=== PATIENT | female | born 1970 | race African-American/Black ===

== ENCOUNTER 2018-09-07 14:27 | Emergency (ER) | payer MEDICAID ==
[~2018-09-07] VITALS: Ht 162.6 cm; Wt 118.0 kg
--- NOTE | 2018-09-07 14:41 | NUR ---
Spoke to MARIA L Kenny regarding pt complaints. Per MD, pt does not need EKG at this time as she is not experiencing any chest pain or SOB.
[2018-09-07 17:55] VITALS: BP 195/107
== END 2018-09-07 18:01 | disposition home or self-care (01) ==
LOC: ER 14:28
DX: I10 Essential (primary) hypertension (principal)
CPT/HCPCS: 99283